=== PATIENT | female | born 1980 | race Caucasian/White ===

== ENCOUNTER → 2018-09-15 13:13 | Outpatient (CLI) | payer OTHER | END | disposition home or self-care (01) | LOC: D.CT 13:00 | DX: R51 Headache (principal); Z86.73 Personal history of transient ischemic attack (TIA), and cerebral infarction without residual deficits ==

== ENCOUNTER → 2018-09-22 08:00 | Outpatient (CLI) | payer OTHER | END | disposition home or self-care (01) | LOC: D.MRI 09-21 11:30 | DX: D68.59 Other primary thrombophilia (principal); R93.89 Abnormal findings on diagnostic imaging of other specified body structures; I63.9 Cerebral infarction, unspecified ==

== ENCOUNTER 2020-01-12 15:10 | Emergency (ER) | payer OTHER ==
[~2020-01-12] VITALS: Ht 180.3 cm; Wt 95.5 kg
[2020-01-12 15:13] VITALS: Ht 180.3 cm; Wt 95.5 kg
[2020-01-12] MEDS ORDERED: CYMBALTA60 MG (15:20)
[2020-01-12] MEDS ORDERED: ELAVIL25 MG (15:21)
[2020-01-12] MEDS ORDERED: TYLENOL W/CODEI1 TAB PO (16:56)
[2020-01-12] MEDS ORDERED: VIBRAMYCIN 100100 MG PO (16:56)
[2020-01-12] MEDS ORDERED: METHOCARBAMOL500 MG PO (16:56)
[2020-01-12 17:10] VITALS: BP 133/68
== END 2020-01-12 18:10 | disposition home or self-care (01) ==
LOC: D.ER 15:10
DX: S09.90XA Unspecified injury of head, initial encounter (principal); S01.01XA Laceration without foreign body of scalp, initial encounter; W22.8XXA Striking against or struck by other objects, initial encounter; Y93.9 Activity, unspecified; Y92.9 Unspecified place or not applicable; R51 Headache; Z86.73 Personal history of transient ischemic attack (TIA), and cerebral infarction without residual deficits

== ENCOUNTER 2020-02-11 19:00 | Outpatient (CLI) | payer OTHER ==
[2020-01-12 15:13] VITALS: BMI 29.3
[~2020-02-11 19:00] MED LIST: CYMBALTA60 MG; ELAVIL25 MG; METHOCARBAMOL500 MG PO; TYLENOL W/CODEI1 TAB PO; VIBRAMYCIN 100100 MG PO
== END 2020-02-11 23:59 | disposition home or self-care (01) ==
LOC: D.MAMMO 19:00
PROVIDERS: ATTEND Family Medicine
DX: Z12.31 Encounter for screening mammogram for malignant neoplasm of breast (principal)